=== PATIENT | female | born 1955 | race Caucasian/White ===

== ENCOUNTER 2018-11-26 09:02 | Day surgery (SDC) | payer MEDICARE, OTHER ==
[~2018-11-26] VITALS: Ht 167.6 cm; Wt 73.3 kg
[2018-11-26] VITALS (9 sets, daily range): BP systolic 100–114; BP diastolic 42–55; PULSE 72–96; RESP 16–24; Ht 167.6 cm; Wt 73.3 kg
[~2018-11-26 09:02] MED LIST: ATOR20TA38 PO; CALC1TAB79 PO; CYCLOPENTOLATE 2% 2 ML OPH OPER SCH; IBUP-1982 PO; LISI10TA2 PO; MOXIFLOXACIN 0.5% 3 ML OPH OPER ONE; NEPAFENAC 0.1% 3 ML OPH OPER SCH; PHENYLephrine 10% 5 ML OPH OPER SCH; SERT50TA PO; UBID400C5 PO
--- NOTE | 2018-11-26 09:48 | PREAC ---
Date/Time of Note Date/Time of Note DATE: 11/26/18 TIME: 09:47 Anesthesia Eval and Record Evaluation Time Pre-Procedure Interview DATE: 11/26/18 TIME: 09:47 Age 63 Sex female NPO: 8 hrs Preoperative diagnosis left eye cataract Planned procedure left eye cataract extraction intraocular lens implant Past Medical History Past Medical History: Includes Cardio: HTN Pulm: Smoking Hx (smokes 1/2 ppd since age 11, smoked this am.) Psych: Depression Surgery & Anesthesia Issues No known issue Meds Anticoagulation: No Beta Nico within 24 hr: No Reason Beta Nico not given: Pt. not on B-Nico Reported Medications Calcium Carbonate/Vitamin D3 (Oysco 500+D Tablet) 1 Each Tablet, 1 EACH PO DAILY, TAB 11/26/18 Ubidecarenone* (Co Q-10*) 400 Mg Capsule, 400 MG PO DAILY, CAP 11/26/18 Atorvastatin Calcium* (Atorvastatin Calcium*) 20 Mg Tablet, 20 MG PO QHS, #30 TAB 11/26/18 Sertraline Hcl* (Zoloft*) 50 Mg Tablet, 50 MG PO DAILY, #30 TAB 05/23/18 Lisinopril* (Lisinopril*) 10 Mg Tablet, 10 MG PO DAILY, #30 TAB 05/23/18 Discontinued Reported Medications Ibuprofen* (Ibuprofen*) 200 Mg Capsule, 200 MG PO QID PRN for PAIN, CAP 05/23/18 Current Medications Cyclopentolate HCl (Cyclogyl 2% Oph) 1 drop Q5 MIN X 3 OPER ; Start 11/26/18 at 07:00 Phenylephrine HCl (Ak-Dilate 10%) 1 drop Q5 MIN X3 OPER ; Start 11/26/18 at 07:00 Nepafenac ([place] Oph) 1 drop Q5 MIN X3 OPER ; Start 11/26/18 at 07:00 Meds reviewed: Yes Allergies Coded Allergies: No Known Allergy (Unverified , 11/26/18) Allergies Reviewed: Yes Labs/Studies Labs Reviewed: Reviewed by anesthesiologist test: N/A Studies: ECG Pre-procedure Exam Airway: Adequate mouth opening, Adequate thyromental dist Mallampati: Mallampati II Teeth: Normal (edentulous) Lung: Normal Heart: Normal ASA Physical Status ASA physical status: 2 Emergency: None Planned Anesthetic General/MAC: LMA (pt had right eye cataract surgery under [facility] in [facility]) Planned Pain Management Parenteral pain med, Local by surgeon Pre-operative Attestations Prior to commencing anesthesia and surgery, the patient was re-evaluated, there was verification of: *The patient's identity *The results of appropriate recent lab work and preoperative vital signs *The above evaluation not changing prior to induction *Anesthetic plan, risk benefits, alternative and complications discussed with patient/family; questions answered; patient/family understands, accepts and wishes to proceed. CHICA AARON Nov 26, 2018 09:48
[2018-11-26] MEDS ORDERED: PROPOFOL 20 ML ONE (09:49)
[2018-11-26] MEDS ORDERED: FENTAnyl 50 MCG/ML VIAL ONE (09:49)
[2018-11-26] MEDS ORDERED: LIDOCAINE 2% (SDV) 5 ML INJ ONE (09:49)
[2018-11-26] MEDS ORDERED: LIDOCAINE 1% (MPF) 30 ML INJ ONE (10:12)
[2018-11-26] MEDS ORDERED: LIDOCAINE /PF 2% 10 ML AMPUL ONE (10:12)
[2018-11-26] MEDS ORDERED: EPINEPHrine 1 MG INJ ONE (10:12)
[2018-11-26] MEDS ORDERED: CARBACHOL 0.01% 1.5 ML OPH INJ ONE (10:12)
[2018-11-26] MEDS ORDERED: NA BICARB 50 MEQ/50 ML VIAL ONE (10:13)
[2018-11-26] MEDS ORDERED: NA HYALURONATE/CHONDROITIN 0.5 ML SYG ONE (10:13)
--- NOTE | 2018-11-26 10:22 | HPN ---
Date/Time of Note Date/Time of Note DATE: 11/26/18 TIME: 10:21 Interval H&P Admission Note Pt. seen H&P reviewed: No system changes NANCY CHAVES MD Nov 26, 2018 10:22
[2018-11-26] MEDS ORDERED: hydrALAzine 20 MG INJ IV PRN (10:30)
[2018-11-26] MEDS ORDERED: MEPERIDINE 25 MG INJ IV PRN (10:30)
[2018-11-26] MEDS ORDERED: LABETALOL HCL 20MG INJ IV PRN (10:30)
[2018-11-26] MEDS ORDERED: ONDANSETRON 4 MG INJ IV PRN (10:30)
[2018-11-26] MEDS ORDERED: OXYCODONE/ACETAMINOPHEN (5/325) TAB PO PRN ×2 (10:30)
[2018-11-26] MEDS ORDERED: FENTAnyl 50 MCG/ML VIAL IV PRN ×3 (10:30)
[2018-11-26] MEDS ORDERED: ONDANSETRON 4 MG INJ ONE (10:56)
[2018-11-26] MEDS ORDERED: EPHEDrine 25 MG/5 ML SYG ONE (10:57)
[2018-11-26] MEDS ORDERED: TIMOLOL 0.5% 5 ML OPH LEFT EYE ONE (11:05)
--- NOTE | 2018-11-26 11:20 | SIPON ---
Date/Time of Note Date/Time of Note DATE: 11/26/18 TIME: 11:14 Operative Report Preoperative Diagnosis nuclear sclerotic cataract left eye Postoperative Diagnosis same Operation/Procedure Performed KPE with posterior chamber lens implant Surgeon see signature line assistant county engineer none Anesthesia: general Estimated blood loss: none Specimen none Grafts/Implants posterior chamber lens implant Complications none NANCY CHAVES MD Nov 26, 2018 11:20
[2018-11-26] MEDS ORDERED: TIMOLOL MALEATE/PF 0.5% OCCUDOSE (0.3 ML) ONE (11:45)
--- NOTE | 2018-11-26 14:29 | PAC ---
Date/Time of Note Date/Time of Note DATE: 11/26/18 TIME: 14:29 Post-Anesthesia Notes Post-Anesthesia Note Last documented vital signs Vital Signs Date Temp Pulse Resp B/P (MAP) Pulse Ox O2 O2 Flow FiO2 Time Delivery Rate 11/26/18 80 24 106/42 94 Room Air 11:49 (63) 11/26/18 97.2 11:33 Activity: WNL Respiratory function: WNL Cardiovascular function: WNL Mental status: Baseline Pain reasonably controlled: Yes Hydration appropriate: Yes Nausea/Vomiting absent: Yes CHICA AARON Nov 26, 2018 14:29
--- NOTE | 2018-11-26 15:57 | OPR ---
DATE OF OPERATION: 11/26/2018 SURGEON: Nancy Rashid MD BOWL TURNER: None. PREOPERATIVE DIAGNOSIS: Senile nuclear sclerotic cataract left eye. POSTOPERATIVE DIAGNOSIS: Senile nuclear sclerotic cataract, left eye. OPERATION: Kelman phacoemulsification with implantation of intraocular lens left eye. DESCRIPTION OF PROCEDURE: Following standard preparation and draping of the patient, a lid speculum was placed for immobilization of the lids. A SuperBlade incision was made at the corneal limbal junc tion for access into the anterior chamber. Approximately 0.03 mL of nonpreserved 1% Xylocaine was in stilled into the anterior chamber, and after approximately 5 to 10 seconds, this was replaced with Vi scoat. A clear corneal incision was then made using the 3.2 mm keratome, following which an anterior circular capsulorrhexis was made. The major portion of the lens cortex and nucleus were then disloc ated from the capsular bag using hydrodissection. The KPE tip was introduced into the eye and contro lling tumbling of the lens with a 2-handed technique, the major portion of the lens cortex and nucleu s was removed, maintaining the lens in the plane of the iris. The remaining cortical material was re moved via the irrigating aspirating instrument. The capsular bag and the anterior chamber were now r eformed using Viscoat. The proper power lens was then placed in the capsular bag. The viscoelastic was then removed from the eye and the eye reformed with balanced salt solution. One 10-0 Vicryl sutu re was then used to ensure closure of the corneal incision. The eye was reformed to normal pressure using balanced salt solution. The eye and cul-de-sacs were now simply flooded with 5% Betadine solut ion. One drop of Vigamox and 1 drop of Betagan solution were instilled into the eye. A light pressu re dressing was applied, and the patient was returned to the recovery room in satisfactory condition. Dictated By: NANCY VILLA/SHAHZAD Conf#: [id number] DID#: [id number]
== END 2018-11-26 13:20 | disposition home or self-care (01) ==
LOC: SDS 09:02
PROVIDERS: ATTEND Ophthalmology
DX: H25.12 Age-related nuclear cataract, left eye (principal); I10 Essential (primary) hypertension; F17.200 Nicotine dependence, unspecified, uncomplicated
CPT/HCPCS: 66984; J0171; J2405; J3010; V2632